=== PATIENT | female | born 1970 | race Caucasian/White ===

== ENCOUNTER 2023-07-18 16:37 | Emergency (ER) | payer BC ==
[2023-07-18] MEDS ORDERED: Adenosine 6 mg (2 mL) VIAL ONE (16:50)
[2023-07-18] MEDS ORDERED: dilTIAZem 25 MG/5 ML VIAL ONE ×2 (16:57→17:13)
[2023-07-18] MEDS ORDERED: Sodium Chloride 0.9% 100 ML ONE (17:13)
[2023-07-18] MEDS ORDERED: dilTIAZem 125 MG/25 ML SDV ONE (17:13)
[2023-07-18 17:22] LABS: #Basophils 0.2 thou/uL (0.0-0.2); #Eosinphils 0.2 thou/uL (0.0-0.7); #Lymphocytes 5.9 thou/uL (1.20-3.40); #Monocytes 0.6 thou/uL (0.11-0.59); %Basophils 1.4 % (0.0-1.0); %Eosinophils 1.7 % (0.0-10.0); %Lymphocytes 49.5 % (21.0-51.0); %Monocytes 4.8 % (0.0-10.0); %Neutrophils 42.6 % (42.0-75.0); Hematocrit 53.1 % (36.0-47.0); Hemoglobin 16.4 g/dL (12.0-16.0); Mean Corpuscular HGB CONC 30.8 g/dL (32.0-36.0); Mean Platelet Volume 8.3 fL (7.4-10.4); Platelet Count 337 10x3/uL (130-400); RBC Distribution Width 12.4 % (11.5-14.5); Red Blood Cell (RBC) Count 5.65 mill/uL (4.20-5.40); White Blood Cell (WBC) Count 11.8 10x3/uL (4.8-10.8)
[2023-07-18] MEDS ORDERED: Ondansetron PF 4 MG/2 ML Vial ONE (17:27)
[2023-07-18] MEDS ORDERED: Sodium Chloride 0.9% 1,000 ML ONE (17:31)
[2023-07-18 17:45] LABS: ALT (SGPT) 78 U/L (8-55); AST (SGOT) 53 U/L (5-34); Albumin 5.2 g/dL (3.5-5.0); Alkaline Phosphatase 158 U/L (40-110); Anion Gap 23 mmol/L (10-20); BUN (Urea Nitrogen) 19 mg/dL (9.8-20.1); Bilirubin, Total 0.4 mg/dL (0.2-1.2); Calc. Creatinine Clearance 0 mL/min (70-130); Calcium 11.2 mg/dL (7.8-10.44); Carbon Dioxide 19 mmol/L (22-29); Chloride 102 mmol/L (98-107); Estimated GFR 62; Glucose 223 mg/dL (70-105); Lipase 35 U/L (8-78); Potassium 3.9 mmol/L (3.5-5.1); Protein, Total 9.2 g/dL (6.0-8.3); Sodium 140 mmol/L (136-145); Troponin I 0.019 ng/mL (< 0.028)
[2023-07-18 18:14] LABS: Bilirubin Negative (Negative); Blood, Urine Negative (Negative); Glucose, Urine (Dipstick) 250 mg/dL (Negative); Ketone, Urine Negative (Negative); Leukocyte Negative (Negative); Nitrite Negative (Negative); Protein, Urine (Dipstick) 100 mg/dL (Neg-Trace); Specific Gravity, Urine 1.025 (1.005-1.030); Urobilinogen 0.2 mg/dL (Less than 2)
[2023-07-18] MEDS ORDERED: Acetaminophen 500 MG TAB ONE (18:17)
[2023-07-18 18:24] LABS: CAUTI Indications for Culture Pelvic or flank pain; Clarity Hazy (Clear); Urine Culture Reflex No No
[2023-07-18 18:25] LABS: Amphetamine Not Detected (NotDetected); Bacteria/HPF 2+ HPF (None Seen); Barbiturates Screen Not Detected (NotDetected); Benzodiazepine Screen Not Detected (NotDetected); Cocaine Metabolite Screen Not Detected (NotDetected); Methadone Not Detected (NotDetected); Methamphetamine Not Detected (NotDetected); Opiate Screen Not Detected (NotDetected); Oxycodone Screen Not Detected (NotDetected); Phencyclidine (PCP) Not Detected (NotDetected); THC/Cannabinoid Screen Not Detected (NotDetected); Tricyclic Screen Not Detected (NotDetected)
[2023-07-18] MEDS ORDERED: Ketorolac Tromethamine 30 MG (1 mL) VIAL ONE (20:22)
[2023-07-18 20:45] LABS: Troponin I 0.014 ng/mL (< 0.028)
[2023-07-18] MEDS ORDERED: Amiodarone 150 MG/3 ML VIAL ONE ×2 (20:52→21:46)
== END 2023-07-18 21:57 | disposition short-term general hospital (02) ==
LOC: NAV ERS 16:37
DX: I48.92 Unspecified atrial flutter (principal); E86.0 Dehydration; I48.91 Unspecified atrial fibrillation; I10 Essential (primary) hypertension; E11.9 Type 2 diabetes mellitus without complications; Z79.4 Long term (current) use of insulin; Z79.899 Other long term (current) drug therapy
CPT/HCPCS: 71045; 80053; 80306; 81001; 83690; 84484; 85025; 93005; 96361; 96365; 96366; 96374; 96375; 96376; J0153; J0282; J1885; J2405; J7050

== ENCOUNTER 2023-12-13 18:13 | Outpatient (CLI) | payer BC | END 2023-12-13 18:14 | disposition home or self-care (01) | LOC: NAV RAD 18:13 | PROVIDERS: ATTEND Nurse Practitioner Family | DX: R07.81 Pleurodynia (principal); M25.532 Pain in left wrist; M25.511 Pain in right shoulder; S62.002A Unspecified fracture of navicular [scaphoid] bone of left wrist, initial encounter for closed fracture; S22.31XA Fracture of one rib, right side, initial encounter for closed fracture; V80.010A Animal-rider injured by fall from or being thrown from horse in noncollision accident, initial encounter | CPT/HCPCS: 71111 ==

== ENCOUNTER 2024-01-17 14:52 | Outpatient (CLI) | payer BC | END 2024-01-17 14:53 | disposition home or self-care (01) | LOC: NAV RAD 14:52 | PROVIDERS: ATTEND Student in an Organized Health Care Education/Training Program | DX: M25.511 Pain in right shoulder (principal) ==

== ENCOUNTER 2024-09-10 07:52 | Emergency (ER) | payer BC ==
[2024-09-10] MEDS ORDERED: KETAMINE 100 MG/ML (5ML VIAL) ONE (08:06)
[2024-09-10 08:28] LABS: #Basophils 0.2 thou/uL (0.0-0.2); #Eosinophils 0.2 thou/uL (0.0-0.7); #Lymphocytes 5.5 thou/uL (1.20-3.40); #Monocytes 1.0 thou/uL (0.11-0.59); #Neutrophils 9.8 thou/uL (1.40-6.50); %Basophils 1.0 % (0.0-1.0); %Eosinophils 1.3 % (0.0-10.0); %Lymphocytes 33.1 % (21.0-51.0); %Monocytes 6.2 % (0.0-10.0); %Neutrophils 58.4 % (42.0-75.0); ALT (SGPT) 16 U/L (Less than 34); AST (SGOT) 34 U/L (11-34); Albumin 4.6 g/dL (3.1-4.5); Alkaline Phosphatase 116 U/L (40-110); Anion Gap 25 mmol/L (10-20); BUN (Urea Nitrogen) 10 mg/dL (9.8-20.1); Bilirubin, Total 0.5 mg/dL (0.3-1.2); Calc. Creatinine Clearance 0 mL/min (70-130); Calcium 10.3 mg/dL (7.8-10.44); Carbon Dioxide 14 mmol/L (22-29); Chloride 103 mmol/L (98-107); Globulin 3.3 g/dL (2.4-3.5); Glucose 264 mg/dL (70-105); Hematocrit 41.0 % (36.0-47.0); Hemoglobin 13.3 g/dL (12.0-16.0); Mean Corpuscular Hemoglobin 27.6 pg (27.0-31.0); Mean Corpuscular Volume 85.1 fl (78.0-98.0); Platelet Count 494 10x3/uL (130-400); Potassium 3.6 mmol/L (3.5-5.1); Red Blood Cell (RBC) Count 4.81 mill/uL (4.20-5.40); Sodium 138 mmol/L (136-145); White Blood Cell (WBC) Count 16.7 10x3/uL (4.8-10.8)
[2024-09-10 08:30] LABS: Troponin I Less than 0.010 ng/mL (< 0.028)
[2024-09-10 08:31] LABS: INR-International Normal Ratio 1.4
[2024-09-10 09:18] LABS: Magnesium 1.9 mg/dL (1.6-2.6)
[2024-09-10 09:20] LABS: Bicarbonate (HCO3v) 17.2 mmol/L (22.0-28.0); CO2 Tension (PvCO2) 24.9 mmHg (42.0-51.0); Calcium, Ionized 1.20 mmol/L (1.15-1.33); Chloride 111 mmol/L (98-107); Hemoglobin - Calc 12.9 g/dL (12.0-16.0); Potassium 2.7 mmol/L (3.5-5.1); Sodium 140 mmol/L (138-145); T. Carbon Dioxide 18.0 mmol/L (22.0-28.0); vO2 Saturation-calc 94.9 % (60.0-85.0)
[2024-09-10 09:24] LABS: D-Dimer Test Less than 0.27 mcg/mL (0.27-0.43); PTT 42.4 sec (22.9-36.1); Prothrombin Time 17.3 sec (12.0-14.7)
== END 2024-09-10 10:01 | disposition short-term general hospital (02) ==
LOC: NAV ERS 07:52
DX: I47.20 Ventricular tachycardia, unspecified (principal); I48.91 Unspecified atrial fibrillation; I10 Essential (primary) hypertension; Z79.899 Other long term (current) drug therapy
CPT/HCPCS: 71045; 80053; 82330; 82435; 82803; 83605; 83735; 83880; 84132; 84295; 84443; 84484; 85014; 85025; 85379; 85610; 85730; 93005; 94760; 96374; 96375; J0282; J2250; J3010; J7030

== ENCOUNTER 2024-09-23 10:41 | Emergency (ER) | payer BC ==
[2024-09-23 12:03] LABS: #Basophils 0.1 thou/uL (0.0-0.2); #Eosinophils 0.0 thou/uL (0.0-0.7); #Lymphocytes 2.7 thou/uL (1.20-3.40); #Monocytes 0.5 thou/uL (0.11-0.59); #Neutrophils 7.4 thou/uL (1.40-6.50); %Basophils 1.2 % (0.0-1.0); %Eosinophils 0.4 % (0.0-10.0); %Lymphocytes 25.3 % (21.0-51.0); %Monocytes 4.7 % (0.0-10.0); %Neutrophils 68.4 % (42.0-75.0); Hematocrit 42.4 % (36.0-47.0); Hemoglobin 13.8 g/dL (12.0-16.0); Mean Corpuscular Hemoglobin 27.9 pg (27.0-31.0); Mean Corpuscular Volume 85.4 fl (78.0-98.0); Platelet Count 383 10x3/uL (130-400); Red Blood Cell (RBC) Count 4.96 mill/uL (4.20-5.40); White Blood Cell (WBC) Count 10.9 10x3/uL (4.8-10.8)
[2024-09-23 12:05] LABS: ALT (SGPT) 12 U/L (Less than 34); AST (SGOT) 24 U/L (11-34); Albumin 5.0 g/dL (3.1-4.5); Alkaline Phosphatase 85 U/L (40-110); Anion Gap 22 mmol/L (10-20); BUN (Urea Nitrogen) 21 mg/dL (9.8-20.1); Bilirubin, Total 0.8 mg/dL (0.3-1.2); Calc. Creatinine Clearance 0 mL/min (70-130); Calcium 10.9 mg/dL (7.8-10.44); Carbon Dioxide 18 mmol/L (22-29); Chloride 104 mmol/L (98-107); Globulin 3.1 g/dL (2.4-3.5); Glucose 110 mg/dL (70-105); Potassium 3.9 mmol/L (3.5-5.1); Sodium 140 mmol/L (136-145)
[2024-09-23 12:36] LABS: Glucose, Urine (Dipstick) >=1000 mg/dL (Negative); Leukocyte Negative (Negative); Protein, Urine (Dipstick) Trace mg/dL (Neg-Trace); Specific Gravity, Urine 1.020 (1.005-1.030)
[2024-09-23 12:40] LABS: Bacteria/HPF 1+ HPF (None Seen); CAUTI Indications for Culture Fever or rigors; RBC/HPF 0-3 HPF (0-3)
[2024-09-23 12:42] LABS: Urine Culture Reflex Yes Yes
[2024-09-23] MEDS ORDERED: cefTRIAXone (ROCEPHIN) 2 GM VIAL ONE (12:49)
== END 2024-09-23 14:02 | disposition home or self-care (01) ==
LOC: NAV ERS 10:41
DX: N30.00 Acute cystitis without hematuria (principal); R50.9 Fever, unspecified; E11.9 Type 2 diabetes mellitus without complications; I10 Essential (primary) hypertension
CPT/HCPCS: 36415; 71046; 80053; 81001; 83605; 85025; 87040; 87077; 87086; 87426; 96365; J0696; J7030

== ENCOUNTER 2024-10-07 18:20 | Emergency (ER) | payer BC ==
[2024-10-07] MEDS ORDERED: KETAMINE 100 MG/ML (5ML VIAL) ONE (18:47)
[2024-10-07 19:02] LABS: Hematocrit 39.6 % (36.0-47.0); Hemoglobin 13.6 g/dL (12.0-16.0); Mean Corpuscular Hemoglobin 28.7 pg (27.0-31.0); Mean Corpuscular Volume 83.5 fl (78.0-98.0); Platelet Count 449 10x3/uL (130-400); Red Blood Cell (RBC) Count 4.74 mill/uL (4.20-5.40); White Blood Cell (WBC) Count 12.6 10x3/uL (4.8-10.8)
[2024-10-07 19:05] LABS: Anion Gap 24 mmol/L (10-20); BUN (Urea Nitrogen) 8 mg/dL (9.8-20.1); Calc. Creatinine Clearance 0 mL/min (70-130); Calcium 10.1 mg/dL (7.8-10.44); Carbon Dioxide 16 mmol/L (22-29); Chloride 104 mmol/L (98-107); Glucose 210 mg/dL (70-105); Magnesium 1.5 mg/dL (1.6-2.6); Potassium 2.9 mmol/L (3.5-5.1); Sodium 141 mmol/L (136-145)
[2024-10-07 19:08] LABS: Troponin I Less than 0.010 ng/mL (< 0.028)
[2024-10-07] MEDS ORDERED: Magnesium 2 GM/50 ML BAG (IN WATER) ONE (19:09)
[2024-10-07] MEDS ORDERED: Potassium Chloride 20 MEQ (100 mL) BAG ONE (19:14)
[2024-10-07 19:34] LABS: MDiff Complete? YES
== END 2024-10-07 20:29 | disposition short-term general hospital (02) ==
LOC: NAV ERS 18:20
DX: I47.20 Ventricular tachycardia, unspecified (principal); I48.91 Unspecified atrial fibrillation; I51.81 Takotsubo syndrome; Q21.10 Atrial septal defect, unspecified; I10 Essential (primary) hypertension; E11.9 Type 2 diabetes mellitus without complications; K21.9 Gastro-esophageal reflux disease without esophagitis; G43.109 Migraine with aura, not intractable, without status migrainosus; G25.81 Restless legs syndrome; E78.5 Hyperlipidemia, unspecified; Z79.899 Other long term (current) drug therapy; Z79.01 Long term (current) use of anticoagulants; Z79.84 Long term (current) use of oral hypoglycemic drugs
CPT/HCPCS: 80048; 83605; 83735; 83880; 84484; 85025; 92960; 93005; 96374; 96375; 99152; 99153; J2250; J3010; J3475; J3480

== ENCOUNTER 2024-11-06 12:28 | Emergency (ER) | payer BC ==
[~2024-11-06 12:28] MED LIST: Iopamidol 370 76% 100 ML VIAL ONE
[2024-11-06 13:18] LABS: #Basophils 0.1 thou/uL (0.0-0.2); #Eosinophils 0.0 thou/uL (0.0-0.7); #Lymphocytes 3.0 thou/uL (1.20-3.40); #Monocytes 0.7 thou/uL (0.11-0.59); #Neutrophils 7.9 thou/uL (1.40-6.50); %Basophils 1.1 % (0.0-1.0); %Eosinophils 0.1 % (0.0-10.0); %Lymphocytes 25.5 % (21.0-51.0); %Monocytes 6.0 % (0.0-10.0); %Neutrophils 67.3 % (42.0-75.0); Hematocrit 34.6 % (36.0-47.0); Hemoglobin 11.4 g/dL (12.0-16.0); Mean Corpuscular Hemoglobin 27.7 pg (27.0-31.0); Mean Corpuscular Volume 83.7 fl (78.0-98.0); Platelet Count 537 10x3/uL (130-400); Red Blood Cell (RBC) Count 4.14 mill/uL (4.20-5.40); White Blood Cell (WBC) Count 11.7 10x3/uL (4.8-10.8)
[2024-11-06 13:29] LABS: ALT (SGPT) 33 U/L (Less than 34); AST (SGOT) 46 U/L (11-34); Albumin 4.6 g/dL (3.1-4.5); Alkaline Phosphatase 160 U/L (40-110); Anion Gap 21 mmol/L (10-20); BUN (Urea Nitrogen) 16 mg/dL (9.8-20.1); Bilirubin, Total 0.7 mg/dL (0.3-1.2); Calc. Creatinine Clearance 0 mL/min (70-130); Calcium 9.7 mg/dL (7.8-10.44); Carbon Dioxide 20 mmol/L (22-29); Chloride 98 mmol/L (98-107); Globulin 3.5 g/dL (2.4-3.5); Glucose 158 mg/dL (70-105); Potassium 3.3 mmol/L (3.5-5.1); Sodium 136 mmol/L (136-145)
[2024-11-06 13:30] LABS: Troponin I 0.190 ng/mL (< 0.028)
[2024-11-06] MEDS ORDERED: Ketorolac Tromethamine 30 MG (1 mL) VIAL ONE (15:42)
== END 2024-11-06 17:14 | disposition short-term general hospital (02) ==
LOC: NAV ERS 12:28
DX: I30.9 Acute pericarditis, unspecified (principal); I10 Essential (primary) hypertension; E11.9 Type 2 diabetes mellitus without complications; E78.5 Hyperlipidemia, unspecified; I48.91 Unspecified atrial fibrillation; Z79.899 Other long term (current) drug therapy
CPT/HCPCS: 71045; 71275; 80053; 83880; 84484; 85025; 85379; 93005; 96374; J1885; Q9967

== ENCOUNTER 2024-11-28 13:02 | Emergency (ER) | payer BC ==
[2024-11-28] MEDS ORDERED: Prochlorperazine 10 MG/2 ML VIAL ONE (13:43)
[2024-11-28 14:10] LABS: #Basophils 0.2 thou/uL (0.0-0.2); #Eosinophils 0.1 thou/uL (0.0-0.7); #Lymphocytes 3.2 thou/uL (1.20-3.40); #Monocytes 0.5 thou/uL (0.11-0.59); #Neutrophils 3.0 thou/uL (1.40-6.50); %Basophils 2.2 % (0.0-1.0); %Eosinophils 2.0 % (0.0-10.0); %Lymphocytes 45.9 % (21.0-51.0); %Monocytes 6.8 % (0.0-10.0); %Neutrophils 43.1 % (42.0-75.0); Hematocrit 39.9 % (36.0-47.0); Hemoglobin 13.3 g/dL (12.0-16.0); Mean Corpuscular Hemoglobin 26.3 pg (27.0-31.0); Mean Corpuscular Volume 79.0 fl (78.0-98.0); Platelet Count 386 10x3/uL (130-400); Red Blood Cell (RBC) Count 5.05 mill/uL (4.20-5.40); White Blood Cell (WBC) Count 7.0 10x3/uL (4.8-10.8)
[2024-11-28 14:15] LABS: ALT (SGPT) 15 U/L (Less than 34); AST (SGOT) 28 U/L (11-34); Albumin 5.1 g/dL (3.1-4.5); Alkaline Phosphatase 121 U/L (40-110); Anion Gap 21 mmol/L (10-20); BUN (Urea Nitrogen) 17 mg/dL (9.8-20.1); Bilirubin, Total 0.7 mg/dL (0.3-1.2); Calc. Creatinine Clearance 0 mL/min (70-130); Calcium 10.5 mg/dL (7.8-10.44); Carbon Dioxide 20 mmol/L (22-29); Chloride 104 mmol/L (98-107); Globulin 3.2 g/dL (2.4-3.5); Glucose 103 mg/dL (70-105); Potassium 4.5 mmol/L (3.5-5.1); Sodium 140 mmol/L (136-145)
[2024-11-28 14:26] LABS: Glucose, Urine (Dipstick) >=1000 mg/dL (Negative); Leukocyte Negative (Negative); Protein, Urine (Dipstick) Trace mg/dL (Neg-Trace); Specific Gravity, Urine 1.015 (1.005-1.030)
[2024-11-28 14:38] LABS: CAUTI Indications for Culture Fever or rigors; RBC/HPF 0-3 HPF (0-3)
[2024-11-28 14:39] LABS: Bacteria/HPF Rare-Few HPF (None Seen)
[2024-11-28 14:40] LABS: Urine Culture Reflex Yes Yes
[2024-11-28 15:51] LABS: Troponin I Less than 0.010 ng/mL (< 0.028)
== END 2024-11-28 16:11 | disposition home or self-care (01) ==
LOC: NAV ERS 13:02
DX: R11.2 Nausea with vomiting, unspecified (principal); R25.2 Cramp and spasm; I10 Essential (primary) hypertension; E78.5 Hyperlipidemia, unspecified; E11.9 Type 2 diabetes mellitus without complications; Z79.82 Long term (current) use of aspirin; Z79.899 Other long term (current) drug therapy
CPT/HCPCS: 71045; 80053; 81001; 83605; 83880; 84484; 85025; 87086; 93005; 96374; J0780

== ENCOUNTER 2024-12-08 14:37 | Emergency (ER) | payer BC | END 2024-12-08 16:05 | disposition home or self-care (01) | LOC: NAV ERS 14:37 | DX: S92.354A Nondisplaced fracture of fifth metatarsal bone, right foot, initial encounter for closed fracture (principal); I10 Essential (primary) hypertension; E78.5 Hyperlipidemia, unspecified; I48.91 Unspecified atrial fibrillation; Z79.899 Other long term (current) drug therapy; Z79.82 Long term (current) use of aspirin; W19.XXXA Unspecified fall, initial encounter; Y93.01 Activity, walking, marching and hiking | CPT/HCPCS: 99283 ==

== ENCOUNTER 2025-02-02 13:51 | Emergency (ER) | payer BC ==
[2025-02-02 15:19] LABS: Hematocrit 38.1 % (36.0-47.0); Hemoglobin 12.9 g/dL (12.0-16.0); Mean Corpuscular Hemoglobin 26.4 pg (27.0-31.0); Mean Corpuscular Volume 78.2 fl (78.0-98.0); Platelet Count 287 10x3/uL (130-400); Red Blood Cell (RBC) Count 4.87 mill/uL (4.20-5.40); White Blood Cell (WBC) Count 9.2 10x3/uL (4.8-10.8)
[2025-02-02 15:23] LABS: Platelet Adequacy Comment Appears Adequate
[2025-02-02 15:25] LABS: ALT (SGPT) 20 U/L (Less than 34); AST (SGOT) 22 U/L (11-34); Albumin 4.3 g/dL (3.1-4.5); Alkaline Phosphatase 113 U/L (40-110); Anion Gap 17 mmol/L (10-20); BUN (Urea Nitrogen) 14 mg/dL (9.8-20.1); Bilirubin, Total 0.8 mg/dL (0.3-1.2); Calc. Creatinine Clearance 0 mL/min (70-130); Calcium 9.8 mg/dL (7.8-10.44); Carbon Dioxide 19 mmol/L (22-29); Chloride 104 mmol/L (98-107); Globulin 2.5 g/dL (2.4-3.5); Glucose 99 mg/dL (70-105); Potassium 4.2 mmol/L (3.5-5.1); Sodium 136 mmol/L (136-145)
[2025-02-02 15:27] LABS: Troponin I Less than 0.010 ng/mL (< 0.028)
== END 2025-02-02 19:19 | disposition home or self-care (01) ==
LOC: NAV ERS 13:51
DX: R55 Syncope and collapse (principal); I95.9 Hypotension, unspecified; I10 Essential (primary) hypertension; E11.9 Type 2 diabetes mellitus without complications; I48.91 Unspecified atrial fibrillation; E78.5 Hyperlipidemia, unspecified; Z79.82 Long term (current) use of aspirin; Z79.899 Other long term (current) drug therapy; Z79.85 Long-term (current) use of injectable non-insulin antidiabetic drugs
CPT/HCPCS: 70450; 71045; 80053; 84484; 85025; 93005; 96360; 96361; J7030